=== PATIENT | male | born 1990 | race African-American/Black ===

== ENCOUNTER 2022-11-13 13:10 | Emergency (ER) | payer OTHER, SELFPAY ==
--- NOTE | ~2022-11-13 | CT_ITS ---
EXAMINATION: CT soft tissue neck w con DATE: 11/13/2022 16:06 INDICATION: Right jaw pain and swelling. TECHNIQUE: Computed tomography (CT) of the neck was performed with 75 mL Omnipaque-350 intravenous co ntrast. Automated exposure control and iterative reconstruction technique were employed. The dose-steven gth product was 527.59 mGy-cm. COMPARISON: None FINDINGS: There are no pathologically enlarged lymph nodes. The mastoid air cells are normal. There i s cerumen in right external auditory canal. The paranasal sinuses are clear. Tooth 15 is broken with periapical lucencies. There is a carious lesion of tooth 2. Tooth 31 demonstrates a carious lesion an d periapical lucencies with breech of the lingual cortex of the alveolar process and periosteal react ion. There is fat stranding centered in the right submandibular region. No drainable abscess is ident ified. IMPRESSION: 1. Dental disease, worst at tooth 31. Reviewed, dictated and finalized at location [facility]. [employer]
[2022-11-13 13:14] VITALS: BP 142/98; PULSE 70; RESP 15; TEMP 36.5; O2SAT 99
--- NOTE | 2022-11-13 15:47 | ED.GENADULT ---
HPI - General Adult General Chief complaint: Dental/Oral Stated complaint: abscess in mouth Time Seen by Provider: 11/13/22 15:14 Source: patient Mode of arrival: other Limitations: no limitations History of Present Illness HPI narrative: Agus Samuel is a 32 y/o male who presents with complaints of pain/swelling to right jaw area that started with a toothache about 3 days ago. Patient denies any known fever/chills. Related Data Allergies Allergy/AdvReac Type Severity Reaction Status Date / Time No Known Allergies Allergy Verified 11/13/22 15:37 Review of Systems Review of Systems: CONSTITUTIONAL: Denies fever, chills, or sweats. EYES: Denies visual changes, redness, or discharge. ENT: Denies rhinorrhea, congestion, sore throat, or otalgia complains of right lower toothache and swelling to right jaw area. CARDIOVASCULAR: Denies chest pain, palpitations, or edema. RESPIRATORY: Denies cough or dyspnea. GASTROINTESTINAL: Denies abdominal pain, nausea, vomiting, or diarrhea. GENITOURINARY: Denies dysuria or hematuria. SKIN: Denies rash or itching. MUSCULOSKELETAL: Denies back pain, joint pain, or myalgia. NEUROLOGIC: Denies headache, numbness, dizziness, or weakness. PSYCHIATRIC: Denies anxiety or depression. Exam Narrative: GENERAL: Well-appearing, well-nourished, and in no acute distress. HEAD: Normocephalic, atraumatic. EYES: PERRLA and EOMI. ENT: Nares clear, no rhinorrhea or epistaxis. Mucous membranes moist. Oropharynx without tonsillar hypertrophy exudate or other lesions. Tooth decay noted to right lower tooth with moderate swelling to right jaw/painful with palpation/ black sun present unable to see erythema through sun. NECK: Supple. No adenopathy or masses. No carotid bruits or JVD CHEST: Clear to auscultation. No respiratory distress. No wheezes rales or rhonchi HEART: Regular rate and rhythm. No murmur heard. Normal peripheral pulses. ABDOMEN: Soft, nontender, nondistended, normal active bowel sounds. EXTREMITIES: Normal range of motion. No edema. SKIN: Warm, dry, no rash. NEURO: No focal deficits. Alert and oriented x3. PSYCH: Normal mood and affect. Course Vital Signs Vital signs: Vital Signs Temperature 36.5 C 11/13/22 13:14 Pulse Rate 70 11/13/22 13:14 Respiratory Rate 15 11/13/22 13:14 Blood Pressure 142/98 H 11/13/22 13:14 Pulse Oximetry 99 11/13/22 13:14 Temperature 36.5 C 11/13/22 13:14 Pulse Rate 70 11/13/22 13:14 Respiratory Rate 15 11/13/22 13:14 Blood Pressure 142/98 H 11/13/22 13:14 Pulse Oximetry 99 11/13/22 13:14 Medical Decision Making MDM Narrative Medical decision making narrative: Patient presents with complaints of right lower toothache with swelling for the past 3 days. Denies having this before. On exam there is moderate swelling to right jaw area, dental cavity noted to right lower area. Plan to get CT of soft tissue neck and will treat pain and infection accordingly CT done and negative for acute abscess to drain. Patient updated and he states he feels much better from the pain medication. Updated pt that we will plan on d/c with pain medication and antibiotics that he will need to take the antibiotic for 2 weeks and follow up with a dentist, as he does have significant dental carries. Patient agrees with plan and states he has an appointment with a dentist in early November. Differential Diagnosis Differential Diagnosis: Concern for dental cavity/ dental abscess/ Medical Records Medical records reviewed: Yes I reviewed the external patient's medical records. Vital Signs Vital Signs: Vital Signs Temperature 36.5 C 11/13/22 13:14 Pulse Rate 70 11/13/22 13:14 Respiratory Rate 15 11/13/22 13:14 Blood Pressure 142/98 H 11/13/22 13:14 Pulse Oximetry 99 11/13/22 13:14 Temperature 36.5 C 11/13/22 13:14 Pulse Rate 70 11/13/22 13:14 Respiratory Rate 15 11/13/22 13:14 Blood Press
[2022-11-13] MEDS: KETOROLAC 30 MG/ML VIAL (*BKC) IV PUSH (15:56)
[2022-11-15 12:43] LABS: Estimated CRCL calculation 117 ml/min; Estimated Glomerular Filt Rate > 60
== END 2022-11-13 17:17 | disposition home or self-care (01) ==
PROVIDERS: Emergency Provider Nurse Practitioner Family
DX: K02.9 Dental caries, unspecified (principal)
CPT/HCPCS: 36415; 70491; 82565; 96372; 99284; J1885; Q9967